=== PATIENT | male | born 1990 | race Two or more races ===

== ENCOUNTER 2024-07-27 16:35 | Emergency (ER) | payer SELFPAY ==
[2024-07-27 16:41] VITALS: BP 159/85; PULSE 91; RESP 18; TEMP 36.4; O2SAT 96
[2024-07-27 16:44] VITALS: BMI 28.0
--- NOTE | 2024-07-27 16:50 | XR_ITS ---
Examination: Shoulder,right, 3 views Technique: Shoulder AP internal rotation, AP external rotation, Y view shoulder, 3 views Exam date and time :July 27, 2024 1723 hrs. Indications: Injury to the shoulder today, shoulder pain. Findings: No shoulder fracture or dislocation No AC joint separation Impression: No shoulder fracture or dislocation
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
== END 2024-07-27 17:57 ==
LOC: SERX 17:55
PROVIDERS: Emergency Provider Emergency Medicine
DX: Z02.89 Encounter for other administrative examinations (principal); S43.401A Unspecified sprain of right shoulder joint, initial encounter; Y35.813A Legal intervention involving manhandling, suspect injured, initial encounter
CPT/HCPCS: 73030; 99283